=== PATIENT | male | born 1965 | race Caucasian/White ===

== ENCOUNTER 2019-05-05 07:49 | Day surgery (SDC) | payer OTHER ==
[~2019-05-05] VITALS: Ht 180.3 cm; Wt 89.8 kg
[~2019-05-05 07:49] MED LIST: ASPI81TA85 PO; EZET10TA21 PO; LOSA25TA14 PO; MELO15TA28 PO; METO1TAB33 PO; PRIL20TA2 PO; ROSU40TA4 PO; SPIR-10 PO
[2019-05-05] MEDS ORDERED: NS 1,000 ML IV ONE (08:15)
--- NOTE | 2019-05-05 09:20 | ROOR ---
Patient Name: Glen Ontiveros Procedure Date: 05/05/2019 8:57 AM Date of : 1965 Age: 53 Room: [facility] Gender: Male Note Status: Finalized Procedure: Colonoscopy Indications: Screening for colorectal malignant neoplasm Providers: Noah OMER MD Referring MD: SHINE Mcintyre PA-C Requesting Provider: Medicines: Monitored Anesthesia Care Complications: No immediate complications. Procedure: Pre-Anesthesia Assessment: - The heart rate, respiratory rate, oxygen saturations, blood pressure, adequacy of pulmonary ventilation, and response to care were monitored throughout the procedure. The Colonoscope was introduced through the anus and advanced to 10 cm into the ileum. The colonoscopy was performed without difficulty. The patient tolerated the procedure well. The quality of the bowel preparation was good. Findings: The perianal and digital rectal examinations were normal. The colon (entire examined portion) appeared normal. Small Internal Hemorrhoids. Impression: - The entire colon is normal. - Small Internal Hemorrhoids. - No specimens collected. Recommendation: - Repeat colonoscopy in 10 years for screening purposes. Noah Omer MD Noah OMER MD 05/05/2019 9:19:43 AM Electronically signed by Noah OMER MD Number of Addenda: 0 Note Initiated On: 05/05/2019 8:57 AM Estimated Blood Loss: Estimated blood loss: none.
[2019-05-05] MEDS ORDERED: PROPOFOL 500 MG/50 ML VIAL As Ordered ONE (09:34)
[2019-05-05] MEDS ORDERED: LIDOCAINE 2% INJ 100 MG/5 ML SDV (FOR ANES.) As Ordered ONE (09:34)
== END 2019-05-05 09:42 | disposition home or self-care (01) ==
LOC: M OPP 07:49
PROVIDERS: ATTEND Internal Medicine Gastroenterology
DX: Z12.11 Encounter for screening for malignant neoplasm of colon (principal); K64.8 Other hemorrhoids; Z79.82 Long term (current) use of aspirin; Z79.899 Other long term (current) drug therapy; Z88.8 Allergy status to other drugs, medicaments and biological substances; Z87.891 Personal history of nicotine dependence

== ENCOUNTER → 2024-09-28 | Outpatient (REF) | payer BC ==
[~2024-09-28] MED LIST changes: -ASPI81TA85 PO; +ASPI81TA86 PO; +LOSA25TA13 PO; -LOSA25TA14 PO; -ROSU40TA4 PO; +ROSU40TA81 PO
[2024-09-28 13:14] LABS: BASO # 0.1 10^3/uL (0.0-0.2); BASO % 0.6 % (0.0-1.0); EOS # 0.2 10^3/uL (0.0-0.5); EOS % 2.1 % (0.0-3.0); HEMATOCRIT 49.2 % (42.0-52.0); HEMOGLOBIN 16.8 g/dl (13.5-17.5); LYMPH # 1.7 10^3/uL (1.5-5.0); LYMPH % 20.8 % (24.0-44.0); MEAN CORPUSCULAR HEMOGLOBIN 32.2 pg (27.0-33.0); MEAN CORPUSCULAR HGB CONC 34.1 g/dl (32.0-36.5); MEAN CORPUSCULAR VOLUME 94.3 fl (80.0-96.0); MONO % 12.3 % (2.0-8.0); NEUTROPHILS # 5.2 10^3/uL (1.5-8.5); PLATELET COUNT, AUTOMATED 256 10^3/uL (150-450); RED BLOOD COUNT 5.22 10^6/uL (4.30-6.10); WHITE BLOOD COUNT 8.1 10^3/uL (4.0-10.0)
[2024-09-28 13:25] LABS: ALBUMIN 4.2 G/DL (3.2-5.2); ALKALINE PHOSPHATASE 85 U/L (40-129); ALT/SGPT 42 U/L (7.0-40); AST/SGOT 21 U/L (<34); BILIRUBIN,TOTAL 0.6 MG/DL (0.3-1.2); BLOOD UREA NITROGEN 19 MG/DL (9-23); CALCIUM LEVEL 10.2 MG/DL (8.5-10.1); CARBON DIOXIDE LEVEL 29 MMOL/L (20-31); CHLORIDE LEVEL 102 MMOL/L (98-107); CHOLESTEROL LEVEL 133 MG/DL (<200); GLOMERULAR FILTRATION RATE > 60.0 (>56); GLUCOSE, FASTING 88 MG/DL (60-100); LDL CHOLESTEROL 57.2 MG/DL (<100); POTASSIUM SERUM 4.8 MMOL/L (3.5-5.1); SODIUM LEVEL 138 MMOL/L (136-145); TOTAL PROTEIN 7.7 G/DL (5.7-8.2); TRIGLYCERIDES LEVEL 114 MG/DL (<150)
[2024-09-28 13:27] LABS: FREE T4 1.18 NG/DL (0.89-1.76)
[2024-09-28 13:28] LABS: THYROID STIMULATING HORMONE 4.272 uIU/ML (0.55-4.78)
== END ==
LOC: M SFHCADAM 11:03
PROVIDERS: ATTEND Family Medicine
DX: Z00.00 Encounter for general adult medical examination without abnormal findings (principal); R63.5 Abnormal weight gain